=== PATIENT | male | born 1980 | race African-American/Black ===

== ENCOUNTER 2018-05-04 20:32 | Emergency (ER) | payer SELFPAY ==
[~2018-05-04] VITALS: Ht 190.5 cm; Wt 99.8 kg
[2018-05-04 20:35] VITALS: BP 146/100
--- NOTE | 2018-05-04 20:47 | NUR ---
PHYSICIAN AT BEDSIDE
--- NOTE | 2018-05-04 20:48 | NUR ---
Ledy jean in [facility] - 05/04/18 at 2048 by [facility] Patient being evaluated by physician at bedside.
--- NOTE | 2018-05-04 20:50 | NUR ---
PT IS A 37 Y/O MALE BIB [place] [employer] WHO PRESENTS TO THE ED C/O ABD PAIN S/P BEING TASED. NOTED TASER TO THE CHEST AND ABD. PT REPORTS 8/10 ACHING PAIN THAT DOES NOT RADIATE. PT YELLING INCOHERENT STATEMENTS. PT DENIES SOB, N/V/D. PT AWAKE, RR EVEN/UNLABORED. PT REPOSITIONED FOR COMFORT, BED IN LOWEST POSITION. ER MD DR. JAMES NOTIFIED. WILL CONTINUE TO MONITOR. PMH---MENINGITIS, HEP C
[2018-05-04 21:20] VITALS: BP 145/97
--- NOTE | 2018-05-04 21:20 | NUR ---
Patient discharged with v/s stable. Written and verbal after care instructions given and explained. Patient verbalized understanding. Police with in custody. All questions addressed prior to discharge. Advised to follow up with PMD.
== END 2018-05-04 21:20 ==
LOC: MED 20:32
DX: S20.359A Superficial foreign body of unspecified front wall of thorax, initial encounter (principal); S30.851A Superficial foreign body of abdominal wall, initial encounter; Z02.89 Encounter for other administrative examinations; W45.8XXA Other foreign body or object entering through skin, initial encounter; Y93.89 Activity, other specified; Y92.89 Other specified places as the place of occurrence of the external cause; Y99.8 Other external cause status
CPT/HCPCS: 99283; 99284